=== PATIENT | male | born 1930 | race African-American/Black ===

== ENCOUNTER 2016-10-14 23:00 | Inpatient (IN) | payer MEDICARE, OTHER ==
[~2016-10-14] VITALS: Ht 177.8 cm; Wt 81.8 kg
[~2016-10-14 23:00] MED LIST: AMLO10TA2 PO; GLYB5TAB8; METF100097; METO50TA7; SIMV-8; VALS320T13
[2016-10-15 01:12] LABS: Basophils # (auto) 0 uL; Basophils % (auto) 0.1 % (0.0-2.0); Eosinophils # (auto) 0 uL; Hematocrit 38.1 % (41.0-53.0); Hemoglobin 12.3 g/dL (13.5-17.5); Lymphocytes # (auto) 0.5 uL; Lymphocytes % (auto) 2.3 % (10.0-50.0); Mean Corpuscular Hemoglobin 29.2 pg (28.0-32.0); Mean Corpuscular Hgb Conc. 32.3 g/dL (32.0-36.0); Mean Corpuscular Volume 90.3 fL (80.0-100.0); Mean Platelet Volume 8.9 fL (7.4-10.4); Monocytes # (auto) 0.9 uL; Monocytes % (auto) 3.7 % (0.0-12.0); Neutrophils # (auto) 21.9 uL; Neutrophils % (auto) 93.9 % (37.0-80.0); Platelet Count (auto) 264 10^3/uL (140-450); Red Cell Distribution Width 18.9 % (11.6-16.0); SUSPECT VIEW TRANSMISSION; White Blood Cell 23.4 10^3/uL (4.4-10.8)
[2016-10-15 01:33] LABS: Albumin 2.4 g/dL (3.4-5.0); BUN/Creatinine Ratio 16.3; Calcium 9.2 mg/dL (8.5-10.1)
[2016-10-15 01:36] LABS: Bilirubin, Total 3.4 mg/dL (0.2-1.0); Total Protein 7.2 g/dL (6.4-8.2)
[2016-10-15 02:30] LABS: Magnesium 1.9 mg/dL (1.6-2.6)
[2016-10-15 02:42] LABS: INR 1.05 (0.9-1.15); Partial Thromboplastin Time 30.5 sec (22.64-33.71); Prothrombin Time 11.5 sec (9.37-12.3)
[2016-10-15 03:23] LABS: B-Type Natriuretic Peptide 701.92 pg/mL (0-100)
[2016-10-15 03:24] LABS: Temperature: 21.9 C (20.0-25.0)
[2016-10-15] MEDS ORDERED: FUROSEMIDE 20 MG/2 ML VIAL IV ONE (04:15)
[2016-10-15] MEDS ORDERED: cefTRIAXone 1GM/50ML D5W 50 ML IV ONE (04:15)
[2016-10-15 06:11] LABS: Allen Test Yes; Base Excess -5.6 mmol/L (-2.0-2.0); Blood 02Sat 94.2 % (96-100); Blood COHb 0.6 % (0.5-1.5); Blood MetHb 0.2 % (0.0-1.5); HCO3 18.8 mmol/L (22-26.0); HHb 5.8 % (0.0-5.0); MODE NASAL CANNULA; O2Hb 93.4 % (94.0-97.0); PO2 77.9 mmHg (80.0-100.0); PO2(T) 77.9 mmHg (80.0-100.0); Sample Type Arterial; pH 7.373 (7.350-7.450)
[2016-10-15] MEDS ORDERED: ALLO100T PO (09:04)
[2016-10-15] MEDS ORDERED: LISI40TA PO (09:04)
[2016-10-15] MEDS ORDERED: GABA-339 PO (09:04)
[2016-10-15] MEDS ORDERED: PIOG30TA37 PO (09:04)
[2016-10-15] MEDS ORDERED: [UNRECOGNIZED DRUG - OTHER] (09:04)
[2016-10-15] MEDS ORDERED: MET50T PO (09:04)
[2016-10-15] MEDS ORDERED: SODIUM CHLORIDE 0.9% 1,000 ML IV ONE (09:30)
[2016-10-15] MEDS ORDERED: AZITHROMYCIN 500MG/D5W 250ML 250 ML IV ONE (09:30)
[2016-10-15] MEDS: LINEZOLID 600MG/300ML 300 ML IV SCH ×2 (09:38→22:59)
[2016-10-15] MEDS ORDERED: TAM04C PO (09:48)
[2016-10-15] MEDS ORDERED: NITROGLYCERIN 0.4 MG SL TAB SL PRN (11:45)
[2016-10-15] MEDS ORDERED: DEXTROSE (50%) 50ML SYRG IV PRN (11:45)
[2016-10-15] MEDS ORDERED: PROMETHAZINE HCL 25 MG/ML 1ML IV PRN (11:45)
[2016-10-15] MEDS ORDERED: LORazepam 0.5 MG TAB PO PRN (11:45)
[2016-10-15] MEDS ORDERED: TEMAZEPAM 15 MG CAP PO PRN (11:45)
[2016-10-15] MEDS ORDERED: MORPHINE SULF INJ 2 MG/ML SYRINGE 1ML IV PRN ×2 (11:45)
[2016-10-15] MEDS ORDERED: ENOXAPARIN SOD 30 MG/0.3 ML SYRINGE SC SCH (11:53)
[2016-10-15] MEDS ORDERED: PANTOPRAZOLE 40 MG TAB PO ONE (12:00)
[2016-10-15] MEDS ORDERED: METOPROLOL SUCCINATE XL 50 MG TAB PO ONE (12:00)
[2016-10-15] MEDS ORDERED: ASPirin 81 mg TAB PO ONE (12:00)
[2016-10-15] MEDS ORDERED: TAMSULOSIN HYDROCHLORIDE 0.4 MG CAP PO ONE (12:00)
[2016-10-15] MEDS ORDERED: ENOXAPARIN SOD 80 MG/0.8ML SYRINGE SC ONE (12:45)
[2016-10-15] MEDS ORDERED: GABAPENTIN 300 MG CAP PO SCH (14:00)
[2016-10-15] MEDS: GABAPENTIN 100 MG CAP PO SCH ×2 (14:11→22:59)
[2016-10-15] MEDS: AZITHROMYCIN 500MG/D5W 250ML 250 ML IV SCH (14:12)
[2016-10-15] MEDS: SODIUM CHLORIDE 0.9% 1,000 ML IV SCH ×2 (15:30→17:12)
[2016-10-15 15:50] VITALS: BP 162/83
[2016-10-15 16:04] VITALS: BP 162/83
[2016-10-15 16:11] LABS: Urine Bilirubin Negative (Negative); Urine Color Yellow (Yellow); Urine Glucose Normal (Normal); Urine Ketone Negative (Negative); Urine Nitrite Negative (Negative); Urine RBC 1 /hpf (0 - 3); Urine Urobilinogen Normal (Negative); Urine pH 5.5 (5.0-8.0)
[2016-10-15] MEDS: ACCU-CHEK COMFORT CURVE STRIP VI SCH ×2 (17:00→22:59)
[2016-10-15] MEDS: InsuLIN REG 1unit/0.01ml Soln (100units/ml) SC SCH ×2 (17:02→22:59)
[2016-10-15] MEDS: cefTRIAXone 1GM/50ML D5W 50 ML IV SCH (17:11)
[2016-10-15 17:21] LABS: Urine Blood 1+ /uL (Negative)
[2016-10-15 20:00] VITALS: BP 143/85
[2016-10-16] VITALS: BP 142/77
[2016-10-16] MEDS: SODIUM CHLORIDE 0.9% 1,000 ML IV SCH ×2 (01:30→09:30)
[2016-10-16 04:00] VITALS: BP 167/79
[2016-10-16 05:00] LABS: Basophils # (auto) 0 uL; DEFINITIVE VIEW TRANSMISSION; Eosinophils # (auto) 0 uL; Eosinophils % (auto) 0.1 % (0.0-7.0); Hematocrit 33.6 % (41.0-53.0); Hemoglobin 10.9 g/dL (13.5-17.5); Lymphocytes # (auto) 0.5 uL; Lymphocytes % (auto) 4.5 % (10.0-50.0); Mean Corpuscular Hemoglobin 29.2 pg (28.0-32.0); Mean Corpuscular Hgb Conc. 32.3 g/dL (32.0-36.0); Mean Corpuscular Volume 90.4 fL (80.0-100.0); Mean Platelet Volume 9.6 fL (7.4-10.4); Monocytes # (auto) 0.4 uL; Monocytes % (auto) 3.7 % (0.0-12.0); Neutrophils # (auto) 10.4 uL; Neutrophils % (auto) 91.7 % (37.0-80.0); Platelet Count (auto) 234 10^3/uL (140-450); White Blood Cell 11.3 10^3/uL (4.4-10.8)
[2016-10-16 05:11] LABS: Albumin 2.2 g/dL (3.4-5.0); Bilirubin, Total 3.4 mg/dL (0.2-1.0); Calcium 8.5 mg/dL (8.5-10.1); Potassium 4.1 mmol/L (3.5-5.1); Total Protein 7.1 g/dL (6.4-8.2)
[2016-10-16 05:27] LABS: B-Type Natriuretic Peptide 623.19 pg/mL (0-100); Temperature: 22.3 C (20.0-25.0)
[2016-10-16] MEDS: GABAPENTIN 100 MG CAP PO SCH ×3 (06:00→21:43)
[2016-10-16] MEDS: ACCU-CHEK COMFORT CURVE STRIP VI SCH ×4 (07:06→21:52)
[2016-10-16] MEDS: cefTRIAXone 1GM/50ML D5W 50 ML IV SCH ×2 (07:10→18:30)
[2016-10-16] MEDS: METOPROLOL SUCCINATE XL 50 MG TAB PO SCH (07:10)
[2016-10-16] MEDS: InsuLIN REG 1unit/0.01ml Soln (100units/ml) SC SCH ×4 (07:10→21:46)
[2016-10-16 08:00] VITALS: BP 145/73
[2016-10-16] MEDS ORDERED: cefTRIAXone 1GM/50ML D5W 50 ML IV SCH (09:00)
[2016-10-16 09:41] LABS: Temperature: 23.4 C (20.0-25.0)
[2016-10-16] MEDS ORDERED: ENOXAPARIN SOD 80 MG/0.8ML SYRINGE SC SCH (10:00)
[2016-10-16 10:15] LABS: Temperature: 24.1 C (20.0-25.0)
[2016-10-16] MEDS: LINEZOLID 600MG/300ML 300 ML IV SCH ×2 (11:06→21:43)
[2016-10-16] MEDS: ASPirin 81 mg TAB PO SCH (11:06)
[2016-10-16] MEDS: TAMSULOSIN HYDROCHLORIDE 0.4 MG CAP PO SCH (11:07)
[2016-10-16] MEDS: PANTOPRAZOLE 40 MG TAB PO SCH (11:07)
[2016-10-16 12:00] VITALS: BP 146/77
[2016-10-16] MEDS: AZITHROMYCIN 500MG/D5W 250ML 250 ML IV SCH (13:00)
[2016-10-16] MEDS ORDERED: SODIUM CHLORIDE 0.9% 1,000 ML IV SCH (14:15)
[2016-10-16] MEDS ORDERED: LEVOFLOXACIN 500MG 100 ML IV ONE (14:15)
[2016-10-16 16:00] VITALS: BP 152/81
[2016-10-16] MEDS: FERROUS SULFATE 325 MG TAB PO SCH (18:31)
[2016-10-16 20:00] VITALS: BP 161/77
[2016-10-16] MEDS: DOCUSATE SOD 100 MG CAP PO SCH (21:43)
[2016-10-17] VITALS: BP 161/81
[2016-10-17 04:00] VITALS: BP 157/71
[2016-10-17] MEDS: cefTRIAXone 1GM/50ML D5W 50 ML IV SCH ×2 (04:36→17:45)
[2016-10-17 06:01] LABS: Basophils # (auto) 0 uL; Basophils % (auto) 0.4 % (0.0-2.0); DEFINITIVE VIEW TRANSMISSION; Eosinophils # (auto) 0.1 uL; Eosinophils % (auto) 1.2 % (0.0-7.0); Hematocrit 31.3 % (41.0-53.0); Hemoglobin 10.2 g/dL (13.5-17.5); Lymphocytes # (auto) 0.6 uL; Lymphocytes % (auto) 7.7 % (10.0-50.0); Mean Corpuscular Hemoglobin 29.6 pg (28.0-32.0); Mean Corpuscular Hgb Conc. 32.6 g/dL (32.0-36.0); Mean Corpuscular Volume 90.9 fL (80.0-100.0); Mean Platelet Volume 10.1 fL (7.4-10.4); Monocytes # (auto) 0.4 uL; Monocytes % (auto) 5.6 % (0.0-12.0); Neutrophils # (auto) 6.4 uL; Neutrophils % (auto) 85.1 % (37.0-80.0); Platelet Count (auto) 226 10^3/uL (140-450); Red Cell Distribution Width 19.3 % (11.6-16.0); White Blood Cell 7.6 10^3/uL (4.4-10.8)
[2016-10-17 06:05] LABS: Calcium 8.7 mg/dL (8.5-10.1); Magnesium 1.9 mg/dL (1.6-2.6); Potassium 3.9 mmol/L (3.5-5.1)
[2016-10-17 06:07] LABS: BUN/Creatinine Ratio 16.7
[2016-10-17] MEDS: METOPROLOL SUCCINATE XL 50 MG TAB PO SCH (06:27)
[2016-10-17] MEDS: GABAPENTIN 100 MG CAP PO SCH ×2 (06:27→14:30)
[2016-10-17] MEDS: InsuLIN REG 1unit/0.01ml Soln (100units/ml) SC SCH ×3 (06:49→17:00)
[2016-10-17] MEDS: ACCU-CHEK COMFORT CURVE STRIP VI SCH ×3 (07:00→17:00)
[2016-10-17 08:00] VITALS: BP 108/74
[2016-10-17] MEDS: FERROUS SULFATE 325 MG TAB PO SCH ×3 (08:49→17:45)
[2016-10-17] MEDS: DOCUSATE SOD 100 MG CAP PO SCH (09:42)
[2016-10-17] MEDS: LINEZOLID 600MG/300ML 300 ML IV SCH (09:53)
[2016-10-17] MEDS: PANTOPRAZOLE 40 MG TAB PO SCH (09:54)
[2016-10-17] MEDS: TAMSULOSIN HYDROCHLORIDE 0.4 MG CAP PO SCH (09:54)
[2016-10-17] MEDS: ASPirin 81 mg TAB PO SCH (09:54)
[2016-10-17] MEDS ORDERED: LEVOFLOXACIN 250MG 50 ML IV SCH (14:00)
[2016-10-17 16:00] VITALS: BP 175/81
[2016-10-17 19:07] LABS: Sjogren's Anti-SS-A Antibody <0.2 AI (0.0-0.9)
[2016-10-17 20:00] VITALS: BP 161/88
[2016-10-17] MEDS ORDERED: [UNRECOGNIZED DRUG - CODE] XX ×3 (20:57→21:00)
[2016-10-19 23:12] LABS: Vitamin D 25-Hydroxy 9.6 ng/mL (.); Vitamin D-2 25-Hydroxy 1.7 ng/mL (.)
== END 2016-10-17 20:33 | DRG 871 ==
LOC: EDBD 23:00 → ER 23:03 → TELE 23:04 → DOU IN ICU 10-15 15:13
PROVIDERS: ADMIT Internal Medicine; ATTEND Internal Medicine
DX: A41.59 Other Gram-negative sepsis (principal); G92 Toxic encephalopathy; N18.4 Chronic kidney disease, stage 4 (severe); N17.9 Acute kidney failure, unspecified; I13.0 Hypertensive heart and chronic kidney disease with heart failure and stage 1 through stage 4 chronic kidney disease, or unspecified chronic kidney disease; K80.20 Calculus of gallbladder without cholecystitis without obstruction; Z66 Do not resuscitate; I50.9 Heart failure, unspecified; D50.9 Iron deficiency anemia, unspecified; D63.8 Anemia in other chronic diseases classified elsewhere; E04.2 Nontoxic multinodular goiter; E11.22 Type 2 diabetes mellitus with diabetic chronic kidney disease; E11.42 Type 2 diabetes mellitus with diabetic polyneuropathy; E78.5 Hyperlipidemia, unspecified; F17.200 Nicotine dependence, unspecified, uncomplicated; G89.4 Chronic pain syndrome; M10.9 Gout, unspecified; N40.0 Benign prostatic hyperplasia without lower urinary tract symptoms; Z95.0 Presence of cardiac pacemaker; Z79.899 Other long term (current) drug therapy; Z88.0 Allergy status to penicillin
CPT/HCPCS: 36415; 36600; 70450; 71010; 71250; 72192; 76536; 76705; 76775; 80048; 80053; 80061; 80307; 81001; 82140; 82306; 82550; 82570; 82607; 82728; 82746; 82805; 82962; 83036; 83516; 83540; 83550; 83605; 83735; 83880; 83970; 84100; 84156; 84300; 84443; 84484; 84550; 85025; 85379; 85610; 85652; 85730; 86225; 86235; 87040; 87077; 87081; 87086; 87186; 93005; 93306; 93970; 96361; 96365; 96375; J0696; J1815; J1956

== ENCOUNTER 2019-05-29 16:50 | Emergency (ER) | payer OTHER ==
[~2019-05-29] VITALS: Ht 182.9 cm; Wt 113.4 kg
[~2019-05-29 16:50] MED LIST changes: +ALLO100T PO; +AMLO10TA13 PO; -AMLO10TA2 PO; +ASPI-404 PO; +ATOR20TA50 PO; +CLON0.2D6 PO; +DOCU100T15 PO; +FERR-20 PO; +GABA-339 PO; +LISI40TA PO; +MET50T PO; -METF100097; +METO-158 PO; +METO-6; -METO50TA7; +PIOG1TAB37 PO; +SEVE800T8 PO; +SIMV-13 PO; +TAM04C PO; +[UNRECOGNIZED DRUG - CODE] XX; +[UNRECOGNIZED DRUG - OTHER]
[2019-05-29] MEDS ORDERED: LIDOCAINE HCL 100 MG/5ML (2%) SYRG INJ IV ONE (16:51)
[2019-05-29] MEDS ORDERED: D5W 5% 100 ML MINI BAG IV ONE (16:51)
[2019-05-29] MEDS ORDERED: EPINEPHrine HCL 1 MG/10 ML SYRG IV ONE (16:51)
[2019-05-29] MEDS ORDERED: SODIUM BICARBONATE 8.4% INJ 50ML SYRINGE IV ONE (16:51)
[2019-05-29] MEDS ORDERED: AMIODARONE HCL (50 MG/ ML) 3 ML VIAL IV ONE (16:51)
== END 2019-05-30 02:01 | disposition expired ==
LOC: ER 16:50 → EDBD 16:50 → ER 05-30 02:01
DX: I46.9 Cardiac arrest, cause unspecified (principal); J96.90 Respiratory failure, unspecified, unspecified whether with hypoxia or hypercapnia; E11.22 Type 2 diabetes mellitus with diabetic chronic kidney disease; N18.6 End stage renal disease; Z95.0 Presence of cardiac pacemaker; Z90.89 Acquired absence of other organs; Z88.0 Allergy status to penicillin; Z79.899 Other long term (current) drug therapy; Z79.82 Long term (current) use of aspirin
CPT/HCPCS: 92950; 99285; J0171; J0282; J7060